=== PATIENT | female | born 1995 | race Caucasian/White ===

== ENCOUNTER → 2016-12-05 | Outpatient (CLI) | payer MEDICAID ==
--- NOTE | 2016-12-05 13:21 | US ---
Limited Musculoskeletal Ultrasound Posterior Pelvis History: Palpable lump posterior superior upper pelvic region bilaterally on physical exam. Findings: Ultrasound over area of palpable nodularity demonstrates normal posterior paraspinal muscul ature and gluteus musculature. The areas of palpable concern appear to correspond to lobules of subcu taneous fat that have a normal echotexture. There is posterior superior iliac wing that also contribu you to the palpable thickening of the subcutaneous fat in this region on each side. No underlying sig nificant solid or cystic mass is evident. Impression: 1. The areas of palpable concern appear to correspond with normal lobules of subcutaneous fat that ar e accentuated by underlying posterior superior iliac wing on physical exam. No significant abnormalit y seen. Clinical follow-up recommended. The results of this study were reviewed with the patient.
== END ==
LOC: FIMAGING 12:40
PROVIDERS: ATTEND Family Medicine
DX: R22.9 Localized swelling, mass and lump, unspecified (principal)

== ENCOUNTER → 2017-12-04 | Outpatient (CLI) | payer OTHER | LOC: FCPNEURO 21:00 | PROVIDERS: ATTEND Student in an Organized Health Care Education/Training Program | DX: G47.33 Obstructive sleep apnea (adult) (pediatric) (principal) ==

== ENCOUNTER → 2017-12-25 | Outpatient (CLI) | payer OTHER ==
--- NOTE | 2017-12-25 15:37 | CPEKG ---
Heart Rate: 56 RR Interval: 1071 P-R Interval: 132 QRSD Interval: 96 QT Interval: 428 QTC Interval: 414 P [place]: 8 QRS [place]: 16 T Wave [place]: 35 EKG Severity - NORMAL ECG - EKG Impression: SINUS RHYTHM Electronically Signed By: J Luis Andrade 25-Dec-2017 17:03:15
== END ==
LOC: FCP 15:22
PROVIDERS: ATTEND Student in an Organized Health Care Education/Training Program
DX: R94.31 Abnormal electrocardiogram [ECG] [EKG] (principal)

== ENCOUNTER → 2018-03-18 | Outpatient (CLI) | payer MEDICAID, OTHER | LOC: FIMAGING 19:29 | PROVIDERS: ATTEND Psychiatry & Neurology Neurology | DX: R56.9 Unspecified convulsions (principal); R90.82 White matter disease, unspecified ==

== ENCOUNTER → 2018-03-23 | Outpatient (CLI) | payer OTHER ==
--- NOTE | 2018-03-23 13:54 | CPEEG ---
[f rep st] ELECTROENCEPHALOGRAM DATE OF STUDY: 03/23/2018 INTERPRETATION: This 4-hour video EEG recording is normal. There were no potentially epileptogenic abnormalities present during the awake or sleep recordings. During the EEG monitoring session, the p atient denied any clinical events. REPORT: This 4-hour video EEG contains 10 Hz alpha activity over the posterior head regions. There was no abnormal activation at rest, during photic stimulation or hyperventilation. The patient becam e drowsy and fell into sustained sleep during the study. There was no abnormal activation during mukul wsiness, sleep or during times of arousal. The patient did not have any clinical events during the v ideo EEG monitoring session. /[id number]/MODL
== END ==
LOC: FCPNEURO 07:50
PROVIDERS: ATTEND Psychiatry & Neurology Neurology
DX: R56.9 Unspecified convulsions (principal)

== ENCOUNTER → 2018-11-24 | Outpatient (CLI) | payer OTHER | LOC: BMCIMAGING 15:46 | PROVIDERS: ATTEND Family Medicine | DX: M54.9 Dorsalgia, unspecified (principal); F50.9 Eating disorder, unspecified ==